=== PATIENT | female | born 1970 | race Caucasian/White ===

== ENCOUNTER → 2017-05-09 | Outpatient (CLI) | payer MEDICARE, MEDICAID ==
[~2017-05-09] MED LIST: ALPR1TAB2 PO; AMIT50TA3 PO; ARIP10TA2 PO; ARPZ20T PO; BACL10TA PO; BSP10T; CIPR500T4 PO; CLCX200C PO; CPR500T PO; CYCL10TA45 PO; CYCL10TA9 PO; DESV50TA PO; DOXY100C2 PO; FLUO20CA25 PO; FURO-125 PO; HYDR-1231 PO; HYDR-34; HYDR-34 PO; HYDR25CA5 PO; LISI-594 PO; LISI1TAB PO; LISI20TA; LISINOPRIL; LNS30CCR; LORA0.5T PO; LORA1TAB PO; METOPROLOL; METR500T PO; NAPR-243 PO; NAPR-248; NITR-65 PO; OMEP20TA2 PO; ONDA8TAB13 PO; OXYC-12 PO; OXYC-197 PO; OXYC1TAB25 PO; PRD20T PO; PRD5T PO; PREG75CA PO; PRESTIQ; QTP100T; RABE20TA PO; RANI150T90 PO; RISP0.5T3 PO; SULF1TAB38 PO; TIZA4CAP8 PO; TR5C15 TOP; TRAM50TA2 PO; TRM50T PO; ZLP5T PO
--- NOTE | 2017-05-09 10:54 | Diagnostic Imaging Report ---
PROCEDURE: MR imaging cervical spine without contrast. TECHNIQUE: Multiplanar, multisequence MR imaging of the cervical spine was performed without contrast. INDICATION: Neck pain and left arm pain with numbness and tingling, increasing over the last few months. Patient is status post cervical fusion in 2012. COMPARISON: Comparison is made with prior MRI of the cervical spine from 09/30/2013. FINDINGS: Alignment is normal. There are postop changes of ACDF at the C5-C6 level. The marrow signal intensity is unremarkable. Disc spaces are fairly well maintained. There is some generalized desiccation noted. The cervical spinal cord demonstrates homogeneous signal intensity. No significant focal disc protrusion is seen. There does appear to be mild broad-based disc/osteophyte complex indenting the ventral thecal sac at the C4-C5 level but no significant resultant central canal stenosis is seen. C5-C6 level also demonstrates broad-based disc/osteophyte complex with mild central canal narrowing. Neural foramina are patent. C6-C7 level also shows mild broad-based disc/osteophyte complex and mild central canal narrowing, similar to prior. Neural foramina are patent. C7-T1 is unremarkable. IMPRESSION: Postop changes of C5-C6 ACDF and cervical spondylosis. The overall appearance is similar when compared with examination from 09/30/2013. Dictated by: Dictated on workstation # [id number]
== END ==
LOC: RAD 09:14
PROVIDERS: ATTEND Nurse Practitioner Community Health
DX: M47.817 Spondylosis without myelopathy or radiculopathy, lumbosacral region (principal); Z98.890 Other specified postprocedural states
CPT/HCPCS: 72141

== ENCOUNTER → 2018-01-21 | Outpatient (CLI) | payer MEDICARE, MEDICAID ==
[~2018-01-21] MED LIST changes: -OXYC-197 PO; +OXYC1TAB87 PO
--- NOTE | 2018-01-21 14:11 | Diagnostic Imaging Report ---
INDICATION: Screening. The current study was also evaluated with a Computer Aided Detection (CAD) system. 3-D tomosynthesis was also performed and reviewed. Comparison made with prior examination 01/30/2017 back through 06/01/2008. FINDINGS: The fibroglandular tissue is heterogeneously dense bilaterally. There is a well-circumscribed density in the right breast on the MLO projection. This is best seen on tomosynthesis slab 29. This is at approximately 12 o'clock position. There is no other dominant mass or spiculated lesion. There are benign type calcifications. There are no suspicious calcifications. The skin, nipples and axilla are unremarkable. IMPRESSION: Category zero further imaging needed. Well-circumscribed density in the right breast superiorly on the MLO projection. Further evaluation with spot compression views and ultrasound is recommended. ACR BI-RADS Category 0: Incomplete. (Needs additional imaging evaluation). Result letter will be mailed to the patient. Note: At least 10% of breast cancer is not imaged by mammography. Dictated by: Dictated on workstation # [id number]
== END ==
LOC: RAD 11:29
PROVIDERS: ATTEND Nurse Practitioner Primary Care
DX: Z12.31 Encounter for screening mammogram for malignant neoplasm of breast (principal); R92.8 Other abnormal and inconclusive findings on diagnostic imaging of breast
CPT/HCPCS: 77067

== ENCOUNTER 2018-07-12 14:30 | Emergency (ER) | payer MEDICARE, MEDICAID ==
[~2018-07-12] VITALS: Ht 160 cm; Wt 77.1 kg
[2018-07-12] MEDS ORDERED: FLUO60TA (14:45)
[2018-07-12] MEDS ORDERED: PREG150C (14:45)
[2018-07-12] MEDS ORDERED: PREG50CA2 (14:45)
--- NOTE | 2018-07-12 14:59 | ED General ---
General Chief Complaint: General Problems/Pain Stated Complaint: HAND PAIN/INJ 06/22, FALL 1 WK AGO TAILBONE PAIN Nursing Triage Note: AMBULATED TO TRIAGE WITHOUT DIFFICULTY. COMPLAINS OF PAIN LEFT ARM. DX WITH A FX FIRST OF MONTH AT [facility]. SEEN EDYTA WHO TOOK OFF THE ORTHOGLASS SPLINT AND PLACED A VELCRO SPLINT. STATES SHE DOES NOT THINK THE VELCRO IS DOING WHAT IT SHOULD. ALSO STATES SHE FELL A WEEK AGO HURTING HER TAILBONE. Nursing Sepsis Screen: No Definite Risk Source of Information: Patient Exam Limitations: No Limitations History of Present Illness Date Seen by Provider: Jul 12, 2018 Time Seen by Provider: 14:54 Initial Comments The patient reports that early in June she struck a wall with her left hand in a fit of pique. She saw her community doctor and then Dr. Mcmillan. She was initially placed in a plaster splint and then after she saw Dr. Mcmillan she was placed in a wrist immobilizer. Last week she fell backwards and has had pain in the area of her low back and coccyx. This makes it difficult to sit and troubles her when trying to sleep. Timing/Duration: Other Allergies and Home Medications Allergies Coded Allergies: sumatriptan (Unverified Allergy, Mild, 09/08/08) codeine (Verified Allergy, Unknown, 09/20/06) meperidine (Verified Allergy, Unknown, 09/20/06) Home Medications Hctz/Lisinopril 1 Each Tablet, 1 TAB PO DAILY, (Reported) Patient Home Medication List Home Medication List Reviewed: Yes Review of Systems Review of Systems Constitutional: see HPI EENTM: no symptoms reported Respiratory: no symptoms reported Cardiovascular: no symptoms reported Gastrointestinal: no symptoms reported Genitourinary: no symptoms reported Musculoskeletal: no symptoms reported Skin: no symptoms reported Psychiatric/Neurological: No Symptoms Reported Hematologic/Lymphatic: No Symptoms Reported Immunological/Allergic: no symptoms reported Past Kzdabvw-Vkqxig-Nepqnv Hx Patient Social History Alcohol Use: Rarely Uses Recreational Drug Use: Yes Drug of Choice: POT Smoking Status: Current Everyday Smoker Type Used: Cigarettes Recent Foreign Travel: No Contact w/Someone Who Travel: No Recent Infectious Disease Expo: No Recent Hopitalizations: Yes ([facility] ) Immunizations Up To Date Tetanus Booster (TDap): Unknown Date of Influenza Vaccine: Feb 13, 2013 Past Medical History Surgeries: Yes (CERVICAL SPINE) Bladder Surgery, Section, Gallbladder, Orthopedic Respiratory: No Cardiac: Yes Hypertension Neurological: Yes (OLD SKULL FX -NO LASTING EFFECTS, EXCEPT HEADACHES) Reproductive Disorders: No CABIN MAN History: Tubal Ligation Sexually Transmitted Disease: No Gastrointestinal: Yes Gastroesophageal Reflux, Pancreatitis, Hepatitis, Gall Bladder Disease Musculoskeletal: Yes Degenerate Disk Disease, Arthritis, Chronic Back Pain Endocrine: No Cancer: No Psychosocial: Yes Anxiety, Bipolar, Depression Integumentary: No Blood Disorders: No Family Medical History No Pertinent Family Hx Physical Exam Vital Signs Vital Signs - First Documented 07/12/18 14:39 Temp 98.2 Pulse 73 Resp 16 B/P (MAP) 162/87 (112) Pulse Ox 98 O2 Delivery Room Air Capillary Refill : Less Than 3 Seconds Height, Weight, BMI Height: 5'3.00" Weight: 170lbs. 14.4oz. [id number]; 28.29 BMI Method:Stated General Appearance: No Apparent Distress, WD/WN HEENT: Normal ENT Inspection Neck: Full Range of Motion, Normal Inspection, Non Tender, Supple, Carotid Bruit Respiratory: Chest Non Tender, Lungs Clear, Normal Breath Sounds, No Accessory Muscle Use, No Respiratory Distress Comments Pain in lumbar area with attempt at toe-touch. The patient has a Velcro wrist immobilizer which I did not remove. Progress/Results/Core Measures Suspected Sepsis Recent Fever Within 48 Hours: No Infection Criteria Present: None New/Unexplained Altered Menta: No Sepsis Screen: No Definite Risk SIRS Temperature:98.2 Pulse: 73 Respiratory Rate: 16 Blood Pressure 162 /87 Mean: 112 Results/Orders My Orders Orders - FLEX ANGELES MD Pelvis (07/12/18 14:52) Lumbar Spine - 2-3 Views (07/12/18 14:52) Ondansetron Oral Dissolve Tab (Zofran O (07/12/18 15:30) Ondansetron Oral Dissolve Tab (Zofran (07/12/18 15:27) Ondansetron Oral Dissolve Tab (Zofran (07/12/18 15:30) Medications Given in ED Current Medications Medications Dose Ordered Sig/Myron Route Start Time Stop Time Status Last Admin Dose Admin Ondansetron HCl 8 mg ONCE ONCE PO 07/12/18 15:30 07/12/18 15:32 DC 07/12/18 15:34 8 MG Vital Signs/I&O 3/30/19 14:39 Temp 98.2 Pulse 73 Resp 16 B/P (MAP) 162/87 (112) Pulse Ox 98 O2 Delivery Room Air Capillary Refill : Less Than 3 Seconds Blood Pressure Mean: 112 Departure Communication (Admissions) The x-rays were reviewed by me. The pelvis was negative and the lumbar spine showed a transitional vertebra and some relatively early arthritic changes. After she returned from x-ray she began retching and ultimately vomited. She attributes this to reflux. She states that vomiting is relatively common for her. She did not order her Protonix promptly enough and is awaiting his delivery. She also has Prilosec at home but did not take it this morning. She responded to a Zofran 8 mg. Impression Primary Impression: low back pain Disposition: HOME, SELF-CARE Condition: Stable/Unchanged Departure-Patient Inst. Decision time for Depature: 16:04 Referrals: [facility] (PCP/Family) Primary Care Physician Add. Discharge Instructions: All discharge instructions reviewed with patient and/or family. Voiced understanding. Resume Protonix in LIEU of that use your Prilosec. Tramadol if necessary. Scripts Tramadol HCl (Tramadol HCl) 50 Mg Tablet 50 MG PO 4 times a day, #10 TAB Prov: FLEX ANGELES MD 07/12/18 FLEX ANGELES MD Jul 12, 2018 14:59
--- NOTE | 2018-07-12 15:25 | Diagnostic Imaging Report ---
INDICATION: Fall, pain. COMPARISON: 03/23/2013 TECHNIQUE: Three radiographs of the lumbar spine dated 07/12/2018. FINDINGS: Surgical clips in right upper quadrant of abdomen. Transitional lumbosacral vertebral body is present. Chronic anterior wedging at the thoracolumbar junction is again identified. Otherwise, vertebral body heights are well-maintained. Mild disc space height loss at L5-S1. Multilevel small anterior osteophytes. Scattered facet joint degenerative changes, greatest within the lower lumbar spine. IMPRESSION: 1. No acute osseous abnormality with mild multilevel degenerative changes. 2. Transitional lumbosacral vertebral body. Dictated by: Dictated on workstation # [id number]
[2018-07-12] MEDS ORDERED: ONDANSETRON 4 MG (ZOFRAN) ORAL DISSOLVE TAB ONE (15:27)
--- NOTE | 2018-07-12 15:27 | Diagnostic Imaging Report ---
INDICATION: Fall. COMPARISON: 06/30/2013 TECHNIQUE: Single radiograph of the pelvis dated 07/12/2018. FINDINGS: Transitional lumbosacral vertebral body is again identified. The sacroiliac joints are intact. The pubic symphysis is intact. No acute fracture or dislocation. No destructive osseous process. Minimal degenerative changes in bilateral hips. No suspicious radiopaque foreign body. IMPRESSION: 1. Similar-appearing examination without acute osseous abnormality. 2. Transitional lumbosacral vertebral body. Dictated by: Dictated on workstation # [id number]
[2018-07-12] MEDS ORDERED: ONDANSETRON 8 MG (ZOFRAN) ORAL DISSOLVE TAB PO ONE (15:30)
[2018-07-12] MEDS ORDERED: ONDANSETRON 4 MG (ZOFRAN) ORAL DISSOLVE TAB PO ONE (15:30)
--- NOTE | 2018-07-12 15:30 | NUR ---
PT DRY HEAVING ET STATES IT IS RELATED TO HER REFLUX. DR WILSON.
--- NOTE | 2018-07-12 16:00 | NUR ---
PT STATES THE VINICIO HELPED HER.
[2018-07-12] MEDS ORDERED: TRAM50TA2 PO (16:08)
[2018-07-12 16:13] VITALS: BP 162/87
== END 2018-07-12 16:13 | disposition home or self-care (01) ==
LOC: EDUNIT# 14:30 → ER 14:32
DX: M54.5 Low back pain (principal); I10 Essential (primary) hypertension; F12.10 Cannabis abuse, uncomplicated; F41.9 Anxiety disorder, unspecified; F31.9 Bipolar disorder, unspecified; K21.9 Gastro-esophageal reflux disease without esophagitis; F17.210 Nicotine dependence, cigarettes, uncomplicated; Z98.51 Tubal ligation status; Z88.5 Allergy status to narcotic agent; Z87.19 Personal history of other diseases of the digestive system; Z88.8 Allergy status to other drugs, medicaments and biological substances; Z98.890 Other specified postprocedural states; W19.XXXA Unspecified fall, initial encounter
CPT/HCPCS: 72100; 72170

== ENCOUNTER 2019-10-22 05:41 | Outpatient (RCR) | payer MEDICARE, MEDICAID ==
[2019-10-19 13:50] VITALS: BP 108/61
[2019-10-19 14:43] LABS: BASOPHILS % (AUTO) 0 % (0-10); EOSINOPHILS # (AUTO) 0.1 10^3/uL (0.0-0.3); EOSINOPHILS % (AUTO) 1 % (0-10); HEMATOCRIT 34 % (35-52); HEMOGLOBIN 11.4 G/DL (11.5-16.0); LYMPHOCYTES # (AUTO) 1.7 X 10^3 (1.0-4.0); LYMPHOCYTES % (AUTO) 31 % (12-44); MEAN CORPUSCULAR HEMOGLOBIN 27 PG (25-34); MEAN CORPUSCULAR HGB CONC 34 G/DL (32-36); MEAN CORPUSCULAR VOLUME 80 FL (80-99); MEAN PLATELET VOLUME 11.7 FL (7.4-10.4); MONOCYTES # (AUTO) 0.8 X 10^3 (0.0-1.0); MONOCYTES % (AUTO) 15 % (0-12); NEUTROPHILS # (AUTO) 2.9 X 10^3 (1.8-7.8); NEUTROPHILS % (AUTO) 53 % (42-75); PLATELET COUNT 224 10^3/uL (130-400); RED CELL DISTRIBUTION WIDTH 14.9 % (10.0-14.5); WHITE BLOOD COUNT 5.4 10^3/uL (4.3-11.0)
[~2019-10-22] VITALS: Ht 165 cm; Wt 72.0 kg
[~2019-10-22 05:41] MED LIST changes: +FLUO60TA; +LISI-552 PO; +PANT40SU PO; +PREG150C; +PREG150C46 PO; +PREG50CA2; +PREG50CA65 PO; +RT-ALBUINH IH; -TRAM50TA2 PO
[2019-10-26] MEDS ORDERED: DCS100C PO (10:47)
[2019-10-26] MEDS ORDERED: IBUP-844 PO (10:47)
[2019-10-26] MEDS ORDERED: HYDR-34 PO (10:47)
[2019-10-26] MEDS ORDERED: SIME80TA16 PO (10:47)
== END 2019-10-22 13:40 | disposition home or self-care (01) ==
LOC: PREOP 05:41
PROVIDERS: ATTEND Obstetrics & Gynecology
DX: Z01.812 Encounter for preprocedural laboratory examination (principal); Z20.828 Contact with and (suspected) exposure to other viral communicable diseases; D25.9 Leiomyoma of uterus, unspecified
CPT/HCPCS: 36415; 85025; 86850; 86900; 86901; 87081; 87635

== ENCOUNTER 2019-10-26 10:30 | Day surgery (SDC) | payer MEDICARE, MEDICAID ==
[~2019-10-26] VITALS: Ht 165 cm; Wt 72.0 kg
[2019-10-26] VITALS (11 sets, daily range): BP systolic 111–159; BP diastolic 58–87
[2019-10-26] MEDS ORDERED: LACTATED RINGERS 1,000 ML IV SCH (10:34)
--- NOTE | 2019-10-26 10:38 | Progress Note-Pre Operative ---
Pre-Operative Progress Note H&P Reviewed The H&P was reviewed, patient examined and no changes noted. Date Seen by Provider: Oct 26, 2019 Time Seen by Provider: 10:35 Date H&P Reviewed: Oct 26, 2019 Time H&P Reviewed: 10:35 Pre-Operative Diagnosis: AUB/PMB, Fibroid uterus, Pelvic pressure WANDA SANCHES DO Oct 26, 2019 10:38
[2019-10-26] MEDS ORDERED: HYDROcodone/APAP 7.5 MG/325 MG (LORTAB, LORCET PLUS) TABLET PO PRN (10:45)
[2019-10-26] MEDS ORDERED: DOCUSATE SODIUM 100 MG (COLACE) CAP PO PRN (10:45)
[2019-10-26] MEDS ORDERED: ANTACID SUSP 30 ML UDC (MYLANTA) PO PRN (10:45)
[2019-10-26] MEDS ORDERED: ceFAZolin 2 GM IV Premixed 50 ML IV ONE (10:45)
[2019-10-26] MEDS ORDERED: CHLORASEPTIC LOZENGE MM PRN (10:45)
[2019-10-26] MEDS ORDERED: SIMETHICONE 80 MG (MYLICON) CHEW PO PRN (10:45)
[2019-10-26] MEDS ORDERED: KETOROLAC 30 MG/ML VIAL IV PRN (10:45)
[2019-10-26] MEDS ORDERED: metroNIDAZOLE 500MG/100ML IVPB 100 ML IV ONE (10:45)
[2019-10-26] MEDS ORDERED: ONDANSETRON 4 MG/2 ML (SDV) Z0FRAN IV PRN (10:45)
--- NOTE | 2019-10-26 10:45 | Discharge Inst-Women's Service ---
Discharge Inst-Women's Serv Depart Medication/Instructions New, Converted or Re-Newed RX: RX on Chart Problems Reviewed?: Yes Consults/Follow Up Additional Follow Up: Yes Orders/Referrals Dr. Paulino in 7-10 days and in 8 weeks Activity Activity: Activity as Tolerated Driving Instructions: No Driving for 1 Week NO SMOKING: NO SMOKING Nothing Inside Vagina: No Douching, No [place], No Tampons Diet Discharge Diet: No Restrictions Symptoms to Report to : Bleeding Excessive, Pain Increased, Fever Over 101 Degrees F, Vaginal Bleeding Increase, Questions/Concerns For Any Problems or Questions: Contact Your Physician Skin/Wound Care Infection Signs and Symptoms: Increased Redness, Foul Odor of Wound, Increased Drainage, Skin Itchy or Has a Rash, Increased Swelling, Temperature Above 101 F Operative Area Clean and Dry: Keep Incision Clean/Dry Stitches/Alejandra/Dermabond: Dermabond, Care of Stitches Bathing Instructions: WANDA Jaimes DO Oct 26, 2019 10:45
[2019-10-26] MEDS ORDERED: HYDR-34 PO (10:47)
[2019-10-26] MEDS ORDERED: IBUP-844 PO (10:47)
[2019-10-26] MEDS ORDERED: DCS100C PO (10:47)
[2019-10-26] MEDS ORDERED: SIME80TA16 PO (10:47)
[2019-10-26] MEDS: LACTATED RINGERS 1,000 ML IV PRN ×3 (11:26→13:30)
--- NOTE | 2019-10-26 12:05 | NUR ---
PATIENT UNABLE TO GIVE A URINE SPECIMEN AFTER 1800 CC OF IV FLUID. STRAIGHT CATH ORDER FROM ANESTHESIA.
[2019-10-26] MEDS ORDERED: MIDAZOLAM 2 MG/2 ML (VERSED) VIAL IVP ONE (12:15)
[2019-10-26] MEDS ORDERED: BUPIVACAINE 0.25% 30 ML (SENSORCAINE) VIAL ONE (12:19)
[2019-10-26 12:24] LABS: AMPHETAMINE SCREEN, URINE NEGATIVE (NEGATIVE); CANNABINOID SCREEN, URINE POSITIVE (NEGATIVE); COCAINE SCREEN URINE NEGATIVE (NEGATIVE); METHAMPHETAMINE SCREEN URINE S NEGATIVE (NEGATIVE)
[2019-10-26 12:25] LABS: BARBITURATE SCREEN URINE NEGATIVE (NEGATIVE); BENZODIAZEPINES SCREEN URINE POSITIVE (NEGATIVE); METHADONE STAT NEGATIVE (NEGATIVE); OPIATE SCREEN URINE NEGATIVE (NEGATIVE); OXYCODONE STAT NEGATIVE (NEGATIVE); PROPOXYPHENE STAT NEGATIVE (NEGATIVE); TRICYCLIC ANTIDEPRESSANTS SCRE NEGATIVE (NEGATIVE)
[2019-10-26] MEDS ORDERED: proPOfol 200 MG/20 ML (DIPRIVAN) VIAL IV ONE (12:25)
[2019-10-26] MEDS ORDERED: SEVOFLURANE (ULTANE) 15 ML INHAL SOLN ONE ×5 (12:25→14:53)
[2019-10-26] MEDS ORDERED: fentaNYL INJECTION 100 MCG/2 ML AMP ONE (12:25)
[2019-10-26] MEDS ORDERED: LIDOCAINE PF 2% 5 ML (XYLOCAINE) VIAL ONE (12:25)
[2019-10-26] MEDS ORDERED: MIDAZOLAM 2 MG/2 ML (VERSED) VIAL ONE ×2 (12:25→12:26)
[2019-10-26] MEDS ORDERED: GLYCOPYRROLATE 0.2 MG/ML (ROBINUL) 2 ML VIAL ONE (12:26)
[2019-10-26] MEDS ORDERED: DEXAMETHASONE 10 MG/ML (DECADRON) 1 ML VIAL ONE (12:26)
[2019-10-26] MEDS ORDERED: ONDANSETRON 4 MG/2 ML (SDV) Z0FRAN ONE (12:26)
[2019-10-26] MEDS ORDERED: NEOSTIGMINE 3 MG/3 ML VIAL ONE ×2 (12:26→13:37)
[2019-10-26] MEDS ORDERED: KETOROLAC 30 MG/ML VIAL ONE (12:35)
[2019-10-26] MEDS: LACTATED RINGERS 1,000 ML IV SCH ×3 (12:37→19:09)
[2019-10-26] MEDS ORDERED: HYDROmorphone 2 MG/ML VIAL (DILAUDID) ONE (13:20)
[2019-10-26] MEDS ORDERED: morphine INJ 10 MG/ML 1ML (SYR OR VIAL) IVP ONE (15:00)
[2019-10-26] MEDS ORDERED: HYDROmorphone 2 MG/ML VIAL (DILAUDID) IV ONE (15:00)
[2019-10-26] MEDS ORDERED: ONDANSETRON 4 MG/2 ML (SDV) Z0FRAN IVP PRN (15:00)
--- NOTE | 2019-10-26 15:55 | NUR ---
Pt received from PACU per hospital bed accompanied via surgery staff. Pt to room 302. Iv infusing without difficulty. Foleyto DD patent with clear yellow urine. Report received from Maria Del Rosario GARCIA. see nursing interventions.
[2019-10-26] MEDS ORDERED: KETOROLAC 30 MG/ML VIAL IV SCH (20:00)
--- NOTE | 2019-10-26 20:36 | NUR ---
Called Dr. Paulino, as pt. states "I can't take hydrocodone, it makes me sick, they're supposed to give me Percocet", update given including that pt. voided & voices desire to go home. New order rc'd for Percocet 5 mg x1, instruct pt to call & return to office tomorrow if she feels she needs Rx for Percocet, but must bring Hydrocodone Rx to office. POC reviewed w/pt, verbalized understanding, will give Percocet before D/C.
[2019-10-26] MEDS ORDERED: oxyCODONE/APAP 5/325MG (PERCOCET 5) TABLET PO ONE (20:45)
--- NOTE | 2019-10-26 21:00 | NUR ---
D/C instructions given & explained, pt. verbalized understanding & signed, copy of D/C instructions to pt. Pt. left [facility] via W/C per this RN, to home via private vehicle w/friend after properly secured, pt's belongings, D/C & Rx w/pt.
--- NOTE | 2019-10-26 22:23 | OPERATIVE REPORT ---
DATE OF SERVICE: 10/26/2019 PREOPERATIVE DIAGNOSES: 1. A 49-year-old female with abnormal postmenopausal bleeding. 2. Fibroid uterus. 3. Pelvic pressure. POSTOPERATIVE DIAGNOSES: 1. A 49-year-old female with abnormal postmenopausal bleeding. 2. Fibroid uterus. 3. Pelvic pressure. PROCEDURE: Robotic-assisted total laparoscopic hysterectomy with bilateral salpingo-oophorectomy, weight 333 grams. TOUCH UP PAINTER HAND: Kelly Nunez DNP, who was necessary for vital manipulation and retraction throughout the procedure. ANESTHESIA: General. ESTIMATED BLOOD LOSS: 50 mL. URINE OUTPUT: 100 mL clear at the end of the procedure. FLUIDS: 1600 mL lactated Ringer's solution. FINDINGS: A bulky enlarged fibroid uterus with several subserosal fibroids. SPECIMEN SENT: Uterus, bilateral fallopian tubes and ovaries. INDICATIONS FOR PROCEDURE: This 49-year-old female is a patient who had sought care in my office, after further evaluation of her abnormal postmenopausal bleeding. She had an endometrial biopsy, which was negative for malignancy. She also had a followup ultrasound, which revealed several large fibroids in her uterus. Some of them submucosal and some of them subserosal. I discussed with the patient conservative management treatment options; however, due to her pelvic pressure and discomfort, she is wishing to proceed with more definitive measures in the form of hysterectomy. Risk of this was discussed with the patient in detail including risk of bleeding, infection, damage to surrounding structures including, but not limited to bowel, bladder, ureter, kidneys, possible need for reoperation, postoperative complications, recovery timeframe, risk from anesthesia and even . After everything was discussed with the patient in detail, consent was obtained, the patient was taken to the operating room. OPERATIVE REPORT IN DETAIL: Once in the operating room, general anesthesia was found to be adequate, placed in dorsal lithotomy position, prepped and draped in normal sterile fashion. Timeout was performed. Espino catheter was placed using sterile technique. Weighted speculum was inserted to the patient's vagina. Right angle retractor was used to visualize the cervix. It was grasped at 12 o'clock position using a single tooth tenaculum and 0 Vicryl suture was then placed on anterior lip of the cervix, which was using my retraction point. I then removed the single tooth tenaculum and gently sounded the uterine cavity, depth was found to be 10 cm. I then selected 10 cm Halle uterine manipulator tip and a 4 cm colpotomy ring. I had advanced the manipulator tip into the uterus deploying the balloon and the colpotomy ring around the vaginal fornix. Once this was in place, I am able to appreciate bimanual manipulation on exam. I then removed the weighted speculum and I performed change of gloves and turned my attention to the abdomen where I supraumbilically infiltrated this area using 0.25% Marcaine and made an 8 mm incision, directed Veress needle through the incision until intraperitoneal placement was confirmed using saline drop test. An opening pressure of 3 mmHg was noted. I proceeded to maximum pressure of 15 mmHg, at which point I removed the Veress needle and introduced an 8 mm blunt da Tamika camera trocar. Once this was in place, I am able to confirm intraperitoneal placement using da Tamika laparoscope. I then had the patient placed in steep Trendelenburg and I am able to visualize all my findings as described above. I placed two lateral trocars. These were both 8 mm trocars that were approximately 8 to 10 cm lateral to my supraumbilical trocar. The skin was infiltrated using 0.25% Marcaine. Incisions were made with a knife and the trocars were placed under direct visualization and laparoscope. Once these trocars were in place, I brought in the da Tamika robot and docked in appropriate fashion placing the vessel sealer in the left hand and monopolar marisela in the right hand. I performed the following dissection bilaterally. Starting at the infundibulopelvic ligament, I bipolar cauterized and transected using the vessel sealer. I then grasped the round ligament, bipolar cauterized and transected using vessel sealer. I then am able to grasp the broad ligament, which I then bipolar cauterized and transected using vessel sealer down to the level of the lower uterine segment. I am able to identify my ureters and stay clear of them during this dissection process. The anterior leaflet of the broad ligament was then dissected down to the anterior vaginal fornix, the posterior leaflet was taken around to the posterior vaginal fornix. This allowed me to skeletonize the uterine vessels laterally, which I then bipolar cauterized and transected using the vessel sealer. I then created a colpotomy at 12 o'clock position and took this circumferentially around the vaginal fornix amputating the cervix away from the vagina. The entire specimen, uterus, cervix with fibroids, bilateral fallopian tubes and ovaries were then removed through the vagina. I then proceeded with closing the vaginal cuff and the lateral vaginal apices. I reapproximated using 2-0 Vicryl suture in a [id number] fashion colposuspending into the uterosacral ligaments. I then closed the remainder of the vaginal cuff using 2-0 V-Loc in a running fashion, after which there was no active bleeding noted from any of my dissection planes. I then undocked the da Tamika robot and proceeded with remainder of the case laparoscopically. I copiously irrigated the pelvis using normal saline. Once again, there was no active bleeding noted from any of my dissection planes. I placed FloSeal hemostatic agent over all my planes of dissection and then have the patient taken out of steep Trendelenburg. The lateral trocars were removed under direct visualization of the laparoscope and the supraumbilical trocar was left in place to release insufflation and to introduce 10 mL of 0.25% Marcaine into the peritoneal cavity for postoperative pain management. I then removed this trocar as well. The skin reapproximated using 4-0 Monocryl in interrupted subcuticular stitches. Dermabond was applied to incision and Band-Aids were placed over these as well. The patient tolerated the procedure well and sent to recovery area in stable condition with Espino catheter still in place. There were two lacerations in the vagina that were repaired using 3-0 Vicryl suture. These lacerations were from removal of the fibroid uterus. Lap and sponge counts were correct at the end of the procedure. Instrument counts correct as well. Two grams of Ancef, 500 mg of Flagyl were given preoperatively for infection prophylaxis. Job ID: [id number] DocumentID: [id number] Dictated Date: 10/26/2019 14:41:37 [employer] Date: 10/26/2019 22:23:23 Dictated By: WANDA SANCHES DO
[2019-10-27] MEDS ORDERED: IBUPROFEN 600 MG (MOTRIN) TAB PO SCH (08:00)
== END 2019-10-26 21:00 | disposition home or self-care (01) ==
LOC: SDC 10:30 → LDRP 15:55 → SDC 21:00
PROVIDERS: ATTEND Obstetrics & Gynecology
DX: D25.2 Subserosal leiomyoma of uterus (principal); N80.1 Endometriosis of ovary; N80.0 Endometriosis of uterus; D25.0 Submucous leiomyoma of uterus; D26.9 Other benign neoplasm of uterus, unspecified; N94.89 Other specified conditions associated with female genital organs and menstrual cycle; F41.9 Anxiety disorder, unspecified; F32.9 Major depressive disorder, single episode, unspecified; K21.9 Gastro-esophageal reflux disease without esophagitis; I10 Essential (primary) hypertension; F17.210 Nicotine dependence, cigarettes, uncomplicated; B18.1 Chronic viral hepatitis B without delta-agent; J45.909 Unspecified asthma, uncomplicated; M79.7 Fibromyalgia; Z87.19 Personal history of other diseases of the digestive system; Z88.5 Allergy status to narcotic agent; Z88.8 Allergy status to other drugs, medicaments and biological substances; Z88.1 Allergy status to other antibiotic agents; Z79.899 Other long term (current) drug therapy
CPT/HCPCS: 36415; 80306; 84703; 86850; 86900; 86901

== ENCOUNTER 2019-11-08 08:19 | Emergency (ER) | payer MEDICARE, MEDICAID ==
[~2019-11-08] VITALS: Ht 165.1 cm; Wt 76.3 kg
[~2019-11-08 08:19] MED LIST changes: +DCS100C PO; +IBUP-844 PO; +SIME80TA16 PO
[2019-11-08 08:23] VITALS: BP 167/98
[2019-11-08] MEDS ORDERED: LIDOCAINE 1% INJ 20 ML 20 ML VIAL INJ ONE (08:45)
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
== END 2019-11-08 09:28 | disposition home or self-care (01) ==
LOC: EDUNIT# 08:19 → ER 08:21
DX: S61.214A Laceration without foreign body of right ring finger without damage to nail, initial encounter (principal); J45.909 Unspecified asthma, uncomplicated; I10 Essential (primary) hypertension; G43.909 Migraine, unspecified, not intractable, without status migrainosus; K21.9 Gastro-esophageal reflux disease without esophagitis; G89.29 Other chronic pain; M54.9 Dorsalgia, unspecified; F41.9 Anxiety disorder, unspecified; F31.9 Bipolar disorder, unspecified; F17.210 Nicotine dependence, cigarettes, uncomplicated; Z88.8 Allergy status to other drugs, medicaments and biological substances; Z88.5 Allergy status to narcotic agent; W23.1XXA Caught, crushed, jammed, or pinched between stationary objects, initial encounter

== ENCOUNTER → 2022-10-02 | Outpatient (CLI) | payer MEDICARE, MEDICAID ==
[~2022-10-02] MED LIST changes: +ALBU8.5H6 IH; -CIPR500T4 PO; +CIPR500T5 PO; -DCS100C PO; +DOCU-239 PO; -LISI-552 PO; +LISI20TA26 PO; -RISP0.5T3 PO; +RISP0.5T65 PO; -RT-ALBUINH IH
--- NOTE | 2022-10-02 17:36 | Diagnostic Imaging Report ---
MANDIBLE 4 VIEWS OR MORE INDICATION: Jaw pain COMPARISON: None available. TECHNIQUE: 4 views of mandible are obtained FINDINGS: The bilateral temporomandibular joints are normal in alignment without hypertrophic degenerative change. All of the mandibular and maxillary teeth are absent. No erosions or fracture within the mandible. Paranasal sinuses are clear where visualized. IMPRESSION: No osseous abnormality of the mandible. Dictated by: Dictated on workstation # [id number]
== END ==
LOC: RAD 12:48
PROVIDERS: ATTEND Nurse Practitioner
DX: R68.84 Jaw pain (principal)
CPT/HCPCS: 70110

== ENCOUNTER 2022-12-20 08:30 | Outpatient (RCR) | payer MEDICARE, MEDICAID ==
[~2022-12-20 08:30] MED LIST changes: -PREG150C46 PO; +PREG150C47 PO; -PREG50CA65 PO; +PREG50CA66 PO
== END 2023-01-12 | disposition home or self-care (01) ==
LOC: LAB 08:30
PROVIDERS: ATTEND Nurse Practitioner
DX: R19.7 Diarrhea, unspecified (principal)
CPT/HCPCS: 87015; 87045; 87046; 87899

== ENCOUNTER → 2023-02-26 | Outpatient (CLI) | payer MEDICARE, MEDICAID ==
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
--- NOTE | 2023-02-26 17:40 | Diagnostic Imaging Report ---
EXAMINATION: Left knee radiographs, 3 views. COMPARISON: Left knee radiographs June 30, 2013. HISTORY: 52-year-old female, left knee pain. Fall. FINDINGS: There is mild patellofemoral compartment joint space loss. There is no large knee joint effusion. There is no identified acute fracture. IMPRESSION: 1. No identified acute bony abnormality of the left knee. 2. Mild patellofemoral compartment osteoarthritis which is new since June 30, 2013. Dictated by: Dictated on workstation # [id number]
--- NOTE | 2023-02-26 18:04 | Diagnostic Imaging Report ---
EXAMINATION: Left hand radiographs, 3 views. COMPARISON: November 15, 2014. HISTORY: 52-year-old female, left hand pain. FINDINGS: There is a healed prior deformity of the fifth metacarpal. There is no identified acute fracture. There is no subluxation or dislocation. The joint spaces are relatively well preserved. There is very mild osteoarthritis of the third distal interphalangeal joint. IMPRESSION: 1. No acute bony abnormality of the left hand. Dictated by: Dictated on workstation # [id number]
== END ==
LOC: RAD 13:03
PROVIDERS: ATTEND Nurse Practitioner
DX: M17.12 Unilateral primary osteoarthritis, left knee (principal); S03 Dislocation and sprain of joints and ligaments of head; M79.642 Pain in left hand; M25.532 Pain in left wrist; M79.605 Pain in left leg; Z91.81 History of falling; S09.93XA Unspecified injury of face, initial encounter; X58.XXXD Exposure to other specified factors, subsequent encounter
CPT/HCPCS: 70150; 73130; 73562